=== PATIENT | male | born 1955 | race Caucasian/White ===

== ENCOUNTER 2022-10-09 12:25 | Outpatient (CLI) | payer MEDICARE, SELFPAY ==
--- NOTE | ~2022-10-09 | US_ITS ---
EXAMINATION: US venous doppler LE DATE: 10/09/2022 14:03 INDICATION: Left lower limb pain. Prior left lower limb deep venous thrombosis. TECHNIQUE: Grayscale ultrasound images without and with compression and Doppler ultrasound images of the left lower extremity veins were obtained. COMPARISON: 01/29/2015 FINDINGS: There is a persistent small amount of nonocclusive peripheral thrombus at the left popliteal vein wit h well-defined linear echogenic margin typical of chronic thrombus. The visualized portions of left c ommon femoral vein, profunda (deep) femoral vein, femoral vein, peroneal veins, posterior tibial vein s, gastrocnemius vein and greater saphenous vein outflow are patent. IMPRESSION: 1. Interval decrease in a now small amount of residual nonocclusive likely chronic deep venous throm bosis at the left popliteal vein. Reviewed, dictated and finalized at location A. GOODS CLERK IMPRESSION: 1. Interval decrease in a now small amount of residual nonocclusive likely chr onic deep venous thrombosis at the left popliteal vein.
== END 2022-10-09 12:26 | disposition home or self-care (01) ==
PROVIDERS: PCP Family Medicine; Visit Provider Family Medicine
DX: Z86.718 Personal history of other venous thrombosis and embolism (principal)
CPT/HCPCS: 93971

== ENCOUNTER 2023-09-22 00:10 | Day surgery (SDC) | payer MEDICARE, SELFPAY ==
[2023-09-10 14:28] VITALS: BMI 33.3
--- NOTE | 2023-09-10 15:02 | PC.NURSE ---
Spoke with _PATIENT___ regarding medication __WARFARIN . Pt. verbalizes understanding that the last dose of __WARFARIN__ is to be taken on __09/17/2023___ and the Endoscopist will instruct them when to restart after the procedure.
--- NOTE | 2023-09-18 13:47 | SUR.PREOP ---
Patient called regarding upcoming procedure. Reviewed preop instructions, appointment times, and procedure prep.
[2023-09-22 06:49] VITALS: BP 145/93; PULSE 83; RESP 17; TEMP 36.2; O2SAT 94; BMI 33.2
[2023-09-22] MEDS: LACTATED RINGERS 1,000 ML 150 ML IV CONT (07:04)
[2023-09-22 07:17] LABS: INR 1.2; Prothrombin Time 16.2 Seconds (11.1-14.7)
--- NOTE | 2023-09-22 07:31 | PM.HPGS ---
History of Present Illness History of Present Illness Consent: Risks, benefits, and alternatives have been discussed and questions answered. Patient agrees to proceed with procedure. Chief complaint: hx colon polyps Narrative: Luca Gipson is a 68 year old male Presents for follow-up colonoscopy. Patient had several colon polyps in 2017 that were adenomas. Patient presents today for follow-up exam. He reports that his weight appetite and bowel movements are normal. Patient denies abdominal pain. He has had no bleeding. Family history noncontributory. Review of Systems Review of Systems: Review of systems noncontributory. 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 Chronic obstructive pulmonary disease, unspecified Gout, unspecified Hyperlipidemia, unspecified Hypertensive heart disease with heart failure custodial (current) use of antithrombotics/antiplatelets Nicotine dependence, cigarettes, uncomplicated Personal history of colonic polyps Type 2 diabetes mellitus with other circulatory complications Social History Social History Smoking packs per day: 1 Smoking cigarettes per day: 20.0 Years smoked: 50 Smoking pack-years: 50.00 Smoking status: Current every day smoker Tobacco type: cigarettes Alcohol intake: current Drinks per week: 12 Alcohol use details: BEERS Substance use: current Substance use type: marijuana Other substance usage details: OCC. Lack of Transportation: No Lack of Food: Never True Current Housing: I Have Housing Concerned About Future Housing: No Difficulty Paying Gas/Electric Bills: No Difficulty Paying for Meds: No Currently Unemployed: No Education: Trade/Vocational Certificate Difficulty w/ Childcare or Family Care: Decline to Answer Living arrangements: with family Occupation/Education: retired Gender identity (if verbalized by the patient): Male Sexual Orientation (if Verbalized by the Patient): Straight or Heterosexual Spiritual care concerns: No Meds Home Medications and Allergies Home Medications Medication Instructions Recorded Confirmed Type allopurinol 300 mg tablet 300 mg PO DAILY 03/30/23 09/22/23 History atorvastatin 40 mg tablet 40 mg PO DAILY 03/30/23 09/22/23 History carvedilol 25 mg tablet 25 mg PO BID 03/30/23 09/22/23 History losartan 50 mg tablet 50 mg PO DAILY 03/30/23 09/22/23 History xwlbwqtgfqkw-vsz-pzrxr acid-vit 1 tablet PO DAILY 03/30/23 09/22/23 History K-lycop 400 mcg-20 mcg-370 mcg tablet (Men's 50 Plus Daily Formula) umeclidinium 62.5 mcg-vilanterol 1 inh inhalation DAILY 03/30/23 09/22/23 History 25 mcg/actuation powdr for inhalation (Anoro Ellipta) warfarin 3 mg tablet 3 mg PO .COMPLEX 03/30/23 09/22/23 History warfarin 4 mg tablet 4 mg PO .COMPLEX 03/30/23 09/22/23 History vitamin A 3,000 mcg (10,000 unit) 3,000 mcg PO DAILY 09/10/23 09/22/23 History capsule Allergies Allergy/AdvReac Type Severity Reaction Status Date / Time No Known Allergies Allergy Verified 09/22/23 06:47 Vital Signs Vital Signs - 24 hr 09/22/23 06:49 Temperature 97.1 F L Pulse Rate 83 Respiratory Rate 17 Blood Pressure 145/93 H Pulse Oximetry 94 Oxygen Delivery Room Air Exam Narrative: Physical exam reveals patient to be alert. Vital signs stable. HEENT exam is unremarkable. Patient is anicteric. Lungs are clear to auscultation and percussion. Heart is without murmur or extra sounds. Abdomen bowel sounds are present soft nontender with no organomegaly. Digital external rectal exam normal. Assessment and Plan Assessment and plan (1) Personal history of colon
--- NOTE | 2023-09-22 07:39 | WPDANESEPPF ---
Anes - Initial Pre Proc Eval Procedure: Operation Date: 09/22/23 08:00 Proposed Procedures p Colonoscopy - Bhanu Savage MD Date/Time: 09/22/23 07:39 Surgeon: Bhanu Savage MD Pre Op Diagnosis: hx colon polyps Patient Data Age: 68 Gender: M Height: 1.83 m Weight: 111.1 kg Last Vital Signs Temp 97.1 F L 09/22/23 06:49 Pulse 83 09/22/23 06:49 Resp 17 09/22/23 06:49 BP 145/93 H 09/22/23 06:49 Pulse Ox 94 09/22/23 06:49 O2 Del Method Room Air 09/22/23 06:49 Allergies Allergy/AdvReac Type Severity Reaction Status Date / Time No Known Allergies Allergy Verified 09/22/23 06:47 Home Medications Medication Instructions Recorded Confirmed Type allopurinol 300 mg tablet 300 mg PO DAILY 03/30/23 09/22/23 History atorvastatin 40 mg tablet 40 mg PO DAILY 03/30/23 09/22/23 History carvedilol 25 mg tablet 25 mg PO BID 03/30/23 09/22/23 History losartan 50 mg tablet 50 mg PO DAILY 03/30/23 09/22/23 History lddtlypwoyej-rcp-jojrw acid-vit 1 tablet PO DAILY 03/30/23 09/22/23 History K-lycop 400 mcg-20 mcg-370 mcg tablet (Men's 50 Plus Daily Formula) umeclidinium 62.5 mcg-vilanterol 1 inh inhalation DAILY 03/30/23 09/22/23 History 25 mcg/actuation powdr for inhalation (Anoro Ellipta) warfarin 3 mg tablet 3 mg PO .COMPLEX 03/30/23 09/22/23 History warfarin 4 mg tablet 4 mg PO .COMPLEX 03/30/23 09/22/23 History vitamin A 3,000 mcg (10,000 unit) 3,000 mcg PO DAILY 09/10/23 09/22/23 History capsule Laboratory Tests 09/22/23 06:54 PT 16.2 H Seconds (11.1-14.7) INR 1.2 Patient hx anesthesia problems: none Family hx anesthesia problems: none Results Review: All pre-operative results and documents have been reviewed as part of the pre-operative evaluation. 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 Chronic obstructive pulmonary disease, unspecified Gout, unspecified Hyperlipidemia, unspecified Hypertensive heart disease with heart failure nursing home (current) use of antithrombotics/antiplatelets Nicotine dependence, cigarettes, uncomplicated Personal history of colonic polyps Type 2 diabetes mellitus with other circulatory complications Social History Social History Smoking packs per day: 1 Smoking cigarettes per day: 20.0 Years smoked: 50 Smoking pack-years: 50.00 Smoking status: Current every day smoker Tobacco type: cigarettes Alcohol intake: current Drinks per week: 12 Alcohol use details: BEERS Substance use: current Substance use type: marijuana Other substance usage details: OCC. Lack of Transportation: No Lack of Food: Never True Current Housing: I Have Housing Concerned About Future Housing: No Difficulty Paying Gas/Electric Bills: No Difficulty Paying for Meds: No Currently Unemployed: No Education: Trade/Vocational Certificate Difficulty w/ Childcare or Family Care: Decline to Answer Living arrangements: with family Occupation/Education: retired Gender identity (if verbalized by the patient): Male Sexual Orientation (if Verbalized by the Patient): Straight or Heterosexual Spiritual care concerns: No Anes - Eval Final PreProcedure Day of Procedure 09/22/23 07:39 Patient weight: obese Heart: regular rate and rhythm Lungs: clear to auscultation Airway: Mallampati scale class II Neurological: alert and oriented Last oral intake: >/= 8 hours ASA classification: III Emergent: no Anesthetic plan: proceed Anesthesia type and monitoring: general GIVS and standard monitoring Results Review: All pre-operative results and documents have been reviewed as part of the pre-operative latasha
[2023-09-22 08:17] VITALS: BP 122/81; PULSE 83; RESP 19; O2SAT 96
[2023-09-22 08:27] VITALS: BP 125/85; PULSE 82; RESP 21; O2SAT 96
[2023-09-22 08:37] VITALS: BP 146/93; PULSE 77; RESP 22; O2SAT 97
== END 2023-09-22 08:49 | disposition home or self-care (01) ==
PROVIDERS: PCP Family Medicine; Visit Provider Internal Medicine Gastroenterology
PROC: 0DJD8ZZ Inspection of Lower Intestinal Tract, Via Natural or Artificial Opening Endoscopic (ICD-10-PCS; CPT 45378; principal; 2023-09-22 08:00)
DX: Z12.11 Encounter for screening for malignant neoplasm of colon (principal); D12.2 Benign neoplasm of ascending colon; D12.4 Benign neoplasm of descending colon; K57.30 Diverticulosis of large intestine without perforation or abscess without bleeding; I25.10 Atherosclerotic heart disease of native coronary artery without angina pectoris; I42.9 Cardiomyopathy, unspecified; J44.9 Chronic obstructive pulmonary disease, unspecified; I11.0 Hypertensive heart disease with heart failure; I50.9 Heart failure, unspecified; E11.9 Type 2 diabetes mellitus without complications; E78.5 Hyperlipidemia, unspecified; M10.9 Gout, unspecified; F17.210 Nicotine dependence, cigarettes, uncomplicated; F12.90 Cannabis use, unspecified, uncomplicated; E66.9 Obesity, unspecified; Z68.33 Body mass index [BMI] 33.0-33.9, adult; Z79.01 Long term (current) use of anticoagulants; Z79.51 Long term (current) use of inhaled steroids
CPT/HCPCS: 45385; 36415; 85610; 88305; J2704; J7120

== ENCOUNTER 2023-10-09 08:52 | Outpatient (CLI) | payer MEDICARE, SELFPAY ==
--- NOTE | ~2023-10-09 | US_ITS ---
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 COMPARISON: None. FINDINGS: The proximal aorta measures 2.4 m sagittal dimension. The mid aorta measures 1.8 cm sagittal dimensio n. The distal aorta measures 2 cm sagittal dimension. The right common internal iliac artery measures 1.5 cm. The left common iliac artery measures 1.4 cm. IMPRESSION: 1. Normal caliber aorta without aneurysm. Reviewed, dictated and finalized at location A. [employer]OR [employer] MAKING
== END 2023-10-09 08:53 | disposition home or self-care (01) ==
PROVIDERS: PCP Family Medicine; Visit Provider Internal Medicine Cardiovascular Disease
DX: Z13.6 Encounter for screening for cardiovascular disorders (principal); Z72.0 Tobacco use
CPT/HCPCS: 76706